=== PATIENT | female | born 1940 | race African-American/Black ===

== ENCOUNTER 2017-06-15 21:20 | Inpatient (IN) ==
[2017-06-15] MEDS ORDERED: ZOFRAN IV PRN (22:53)
--- NOTE | 2017-06-16 00:29 | HISTORY AND PHYSICAL ---
PRIMARY CARE PHYSICIAN: Dr. Joe Wilkins. CHIEF COMPLAINT: Blood in stools. HISTORY OF PRESENTING ILLNESS: 77-year-old female with a history of diabetes mellitus type 2, rheumatoid arthritis, hypertension, coronary disease, had presented to emergency room with 3 days history of noticing bright red blood per rectum. The patient states that every time she was having a bowel movement it seemed to be bloody. She apparently had went to [facility] and then due to lack of subspecialists care there she was transferred to [facility] for further GI evaluation. At the time of my examination she had denied any headache, vision changes, fevers, chills, nausea, vomiting, diarrhea, chest pain, shortness of breath, hemoptysis but did admit to hematochezia and not feeling well. PAST MEDICAL HISTORY: Include diabetes mellitus type 2, rheumatoid arthritis, hypertension, coronary artery disease. PAST SURGICAL HISTORY: Cholecystectomy, hysterectomy. ALLERGIES: No known drug allergies. CURRENT MEDICATIONS: As listed in the medication reconciliation. SOCIAL HISTORY: She is a former smoker. Denies any history of alcohol or illicit drug use. FAMILY HISTORY: No history of coronary disease. REVIEW OF SYSTEMS: Twelve point review of systems is as in HPI. Other systems negative. PHYSICAL EXAMINATION: GENERAL: Cooperative, friendly elderly female. She is resting comfortably now. VITAL SIGNS: Temperature 98.5 degrees, pulse 64, respirations 20, blood pressure 157/90. HEENT: Atraumatic, normocephalic. Extraocular movements intact. PERRLA. NECK: No masses. CHEST: Clear to auscultation. CARDIOVASCULAR: Regular rate and rhythm. ABDOMEN: Soft. Positive bowel sounds. EXTREMITIES: No edema. NEURO: She is awake, alert, oriented x3. : No bladder distention. SKIN: Warm. LABORATORIES AND STUDIES: Still pending here. ASSESSMENT: A 77-year-old female with a history of diabetes mellitus type 2, rheumatoid arthritis, hypertension coronary disease, had presented to initially [facility] with complaint of or bright red blood per rectum. She was transferred to [facility] due to lack of subspecialty care there. She will need hospitalization for management. ASSESSMENT: 1. Gastrointestinal bleed. 2. Diabetes mellitus type 2. 3. Rheumatoid arthritis. 4. Coronary artery disease. 5. Hypertension. PLAN: 1. We will admit patient to medical floor. 2. The patient NPO. 3. Continue with IV hydration with normal saline. 4. Will consult Gastroenterology. 5. Monitor blood glucose and put patient on sliding scale insulin regimen. 6. Will monitor blood pressure. Resume antihypertensive agent. 7. Put patient on DVT prophylaxis SCDs. 8. We will continue follow and reassess. cc: Akhil Qureshi MD
[2017-06-16] MEDS: PROTONIX IV SCH ×2 (00:52→23:10)
[2017-06-16] MEDS: NS 1,000 ML IV SCH (00:52)
[2017-06-16 06:07] LABS: HEMATOCRIT 27.5 % (37.0-47.0); HEMOGLOBIN 9.1 g/dL (12.0-16.0); MCH 26.7 PG (27-31); MCHC 33.1 g/dL (33-37); MCV 80.6 FL (81-99); MPV 10.3 FL (7.4-10.4); RBC 3.41 XMIL (4.2-5.4)
[2017-06-16] MEDS: HUMULIN R SUBQ SCH ×4 (06:10→21:49)
[2017-06-16 06:31] LABS: AGAP 9; BUN 21 mg/dL (8-22); CALCIUM 9.1 mg/dL (8.8-10.2); CHLORIDE 110 mmol/L (98-107); COSMO 294; POTASSIUM 3.9 mmol/L (3.5-5.1); SODIUM 146 mmol/L (136-145); TCO2 27 mmol/L (25-35)
--- NOTE | 2017-06-16 09:41 | PROGRESS NOTE ---
DATE: 06/16/2017 SUBJECTIVE: Ms. Snyder is in no pain. No complaints. Presented yesterday with rectal bleeding. She apparently has had a colonoscopy about 5 months ago and they did not find anything but describes bright red blood. PHYSICAL EXAMINATION: Vital Signs: Today, temperature 98.2 degrees, pulse 61, respirations 20, blood pressure 154/84. Lungs: Clear in all lung luis. Cardiovascular Examination: Regular rhythm and rate without murmur or S3. Abdomen: Soft. Skin: Warm and dry. Weight: 176 pounds. LABORATORY DATA: White count 6060, hematocrit 27, hemoglobin 9.1. Sodium 146, potassium 3.9, chloride 110, bicarb 27, BUN 21, creatinine 0.7. REVIEW: To review, this is a 77-year-old. She has a history of diabetes mellitus type 2, rheumatoid arthritis, hypertension, and coronary artery disease. Apparently had a heart attack years ago. Presented to the emergency room with a 3-day history of noticing bright red blood in the rectum and she has been losing some blood. Has had some anemia. Her doctor is Dr. Joe Wilkins. She denied any headache, fever, nausea. ASSESSMENT AND PLAN: 1. Lower gastrointestinal bleeding. We will ask Dr. Knox to see. Follow hemoglobin and hematocrit. Hemodynamically stable at this point. Continue fluids. We will hold her nothing per oral. 2. Diabetes mellitus type 2. We will follow sugars. 3. Rheumatoid arthritis. She is, I think, taking nonsteroidal anti-inflammatories. I think we will probably have to hold those. 4. History coronary artery disease and heart attack in the past. 5. Hypertension. Blood pressure is well controlled. 6. She is getting some pain medicine. Most of her joint pain is in her knees, her right knee in particular, and her hands. Her home medication was Norvasc. She took Butrans topically, Apresoline 50 mg b.i.d., Minipress 2 mg b.i.d., and Zantac 150 mg daily. At the present time, blood pressures look good so we will hold these medicines. cc: MD Akhil Martínez MD
[2017-06-16] MEDS: CENTRUM SILVER PO SCH (11:45)
[2017-06-16] MEDS ORDERED: GOLYTELY PO ONE (14:00)
[2017-06-16 15:29] LABS: BASO% 0.4 % (0.0-0.8); EOS# 0.05 X1000 (0.0-0.7); EOS% 0.9 % (0.0-10.0); HEMATOCRIT 26.3 % (37.0-47.0); HEMOGLOBIN 8.8 g/dL (12.0-16.0); LYMPH% 26.6 % (20.5-51.1); MANUAL DIFF NEEDED? YES; MCH 26.3 PG (27-31); MCHC 33.5 g/dL (33-37); MCV 78.7 FL (81-99); MONO# 0.36 X1000 (0.11-0.59); MONO% 6.4 % (1.7-9.3); MPV 9.6 FL (7.4-10.4); NEUT% 65.7 % (42.2-75.2); PLT 210 X1000 (130-400); RBC 3.34 XMIL (4.2-5.4)
[2017-06-16 15:56] LABS: EOS 3 % (1-10); LYMPHS 23 % (21-51); MONO 3 % (1-9)
[2017-06-16 21:07] LABS: MANUAL DIFF NEEDED? NO
[2017-06-16 21:11] LABS: BASO% 0.5 % (0.0-0.8); EOS# 0.08 X1000 (0.0-0.7); EOS% 1.3 % (0.0-10.0); HEMATOCRIT 30.6 % (37.0-47.0); HEMOGLOBIN 10.5 g/dL (12.0-16.0); LYMPH# 1.62 X1000 (1.2-3.4); LYMPH% 26.1 % (20.5-51.1); MCH 27.3 PG (27-31); MCHC 34.3 g/dL (33-37); MCV 79.7 FL (81-99); MONO# 0.43 X1000 (0.11-0.59); MONO% 6.9 % (1.7-9.3); MPV 9.9 FL (7.4-10.4); NEUT% 65.2 % (42.2-75.2); PLT 220 X1000 (130-400); RBC 3.84 XMIL (4.2-5.4)
[2017-06-16] MEDS: ICAR-C PO SCH (22:08)
[2017-06-17 02:26] LABS: MANUAL DIFF NEEDED? NO
[2017-06-17 02:37] LABS: BASO% 0.6 % (0.0-0.8); EOS# 0.09 X1000 (0.0-0.7); EOS% 1.8 % (0.0-10.0); HEMOGLOBIN 9.5 g/dL (12.0-16.0); LYMPH# 1.45 X1000 (1.2-3.4); LYMPH% 28.8 % (20.5-51.1); MCH 27.1 PG (27-31); MCHC 33.9 g/dL (33-37); MONO# 0.37 X1000 (0.11-0.59); MONO% 7.4 % (1.7-9.3); MPV 9.9 FL (7.4-10.4); NEUT% 61.4 % (42.2-75.2); PLT 188 X1000 (130-400)
--- NOTE | 2017-06-17 04:00 | CONSULTATION ---
DATE OF CONSULTATION: 06/16/2017 REASON FOR CONSULTATION: Rectal bleeding. HISTORY OF PRESENT ILLNESS: Ms. Snyder is a 77-year-old female who was admitted on 06/15/2017 with a new onset of bright red blood in the stools. According to the patient, she noted blood in the stools about 3 days ago, which gradually got worse, and presented to the [facility], from where she was transferred here. Today, so far, she had 5 bowel movements which were bloody, but her last bowel movement showed less amount of blood. She denies any previous history of similar presentation. She had a recent colonoscopy 5 months ago at [place]. She denies any history of peptic ulcer disease. She denies any use of NSAIDs. She denies any history of anti-platelet agents or blood thinners. She denies any previous history of constipation or diarrhea. PAST MEDICAL HISTORY: 1. Type 2 diabetes. 2. Rheumatoid arthritis. 3. Hypertension. 4. Coronary disease. PAST SURGICAL HISTORY: 1. Cholecystectomy. 2. Hysterectomy. 3. Colonoscopy 5 months ago at [place]. ALLERGIES: No known drug allergies. MEDICATIONS IN THE HOSPITAL: Reviewed. SOCIAL HISTORY: She is a former smoker. She denies history of alcohol or illicit drug abuse. FAMILY HISTORY: No history of colon problems in the family. REVIEW OF SYSTEMS: Denies any fevers, rigors, chills, chest pain, shortness of breath. Denies any nausea vomiting, vomiting blood. Does complain of bloody stools. The patient does have a history of arthritis and rheumatoid arthritis. Denies any neurologic complaints. PHYSICAL EXAMINATION: Vital Signs: Temperature of 98.4 degrees, pulse rate of 58, respiratory rate 18, blood pressure 172/81, saturating 98% on room air. Body weight of 176 pounds, 6.4 ounces, BMI of 31.2. General: The patient appears moderately-nourished, lying in bed, in no acute distress. HEENT: Pale conjunctivae. No icterus. Pupils equal, react to light. Neck: Supple. Chest: Decreased breath sounds. Cardiovascular: Regular rate and rhythm. No murmur. Abdomen: Soft, nontender, nondistended. Bowel sounds. No rebound. Extremities: No cyanosis, clubbing, or edema. Neurologic: She is alert, awake, oriented x3. LABORATORY STUDIES: Hemoglobin and hematocrit is 8.8 and 26.3, white count 5.6, platelet count of 210,000. MCV of 78.7, white count of 146. Potassium 3.9, chloride 110, bicarb of 27, anion gap 9, BUN of 21, creatinine 0.7, glucose of 99, calcium 9.1. Blood type is A-positive. IMPRESSION AND PLAN: 1. Anemia, microcytic. 2. Rectal bleeding. 3. Rheumatoid arthritis. 4. Former smoker. 5. Diabetes. 6. Hypertension. 7. Hypernatremia. RECOMMENDATIONS: 1. We will keep her on a clear liquid diet. We will schedule for EGD and colonoscopy tomorrow. We will type and cross, and transfuse 1 unit now, as she had 5 bowel movements today which were bloody. Will check her CBC every 6 hours for the next 24 hours, and we will transfer 2 units if hematocrit less than 25%. 2. We will start her on Protonix once daily. She will continue on sliding scale insulin. 3. If the patient has worsening gastrointestinal bleeding then she may transfer to the ICU. 4. The procedure of EGD and colonoscopy was discussed with the patient, and all risks, benefits, indications, and alternatives were explained to the patient. The patient expressed understanding and agreed to proceed with the above. cc: MD Akhil Mariee MD
[2017-06-17] MEDS: NS 1,000 ML IV SCH ×3 (06:00→14:17)
[2017-06-17] MEDS: HUMULIN R SUBQ SCH ×4 (06:01→21:17)
--- NOTE | 2017-06-17 07:53 | EKG Report ---
Test Performed on : 06/17/2017 06:56:24 AM Test Reason : pre-op Blood Pressure : / mmHG Vent. Rate : 055 BPM Atrial Rate : 055 BPM P-R Int : 176 ms QRS Dur : 150 ms QT Int : 486 ms P-R-T Axes : 075 010 186 degrees QTc Int : 464 ms Sinus bradycardia. Left bundle branch block Abnormal ECG No previous ECGs available Confirmed by Agapito Ambrosio MD ([id number]) on 06/17/2017 8:50:53 AM
[2017-06-17 08:14] LABS: MANUAL DIFF NEEDED? NO
[2017-06-17 08:18] LABS: BASO% 0.4 % (0.0-0.8); EOS# 0.07 X1000 (0.0-0.7); EOS% 1.5 % (0.0-10.0); HEMATOCRIT 27.8 % (37.0-47.0); HEMOGLOBIN 9.5 g/dL (12.0-16.0); LYMPH# 1.04 X1000 (1.2-3.4); LYMPH% 22.7 % (20.5-51.1); MCH 27.4 PG (27-31); MCHC 34.2 g/dL (33-37); MCV 80.1 FL (81-99); MONO# 0.28 X1000 (0.11-0.59); MONO% 6.1 % (1.7-9.3); MPV 10.4 FL (7.4-10.4); NEUT% 69.3 % (42.2-75.2); PLT 179 X1000 (130-400); RBC 3.47 XMIL (4.2-5.4)
[2017-06-17] MEDS: CENTRUM SILVER PO SCH (08:50)
[2017-06-17] MEDS: ICAR-C PO SCH ×3 (08:51→21:18)
[2017-06-17] MEDS ORDERED: FENTANYL ONE (09:47)
[2017-06-17] MEDS ORDERED: DIPRIVAN 1% ONE (09:48)
[2017-06-17] MEDS ORDERED: EPINEPHRINE SYRINGE ONE (10:04)
--- NOTE | 2017-06-17 10:26 | PROGRESS NOTE ---
DATE: 06/15/2017 PHYSICAL EXAMINATION: Temperature 98.1 degrees, pulse 66 respirations 12, blood pressure 174/80.Lungs: Clear in all lung luis. Cardiovascular: Regular rate without murmur or S3. Abdomen: Soft. Skin: Warm and dry. Urine output was 1600 mL. LABORATORY DATA: From today, white count 4580, hematocrit is 27 stable, platelet count 179,000, sodium 146 potassium 3.9, chloride 110, bicarbonate 27, BUN 21, creatinine 0.7. ASSESSMENT AND PLAN: 1. She presented with blood in stool, hematochezia. GI is following. Hematocrit remained stable. I suspect we will have to support colonoscopy. 2. Diabetes mellitus type 2. Blood sugars, continue pattern sugars and sliding scale. 3. History of rheumatoid arthritis. 4. Coronary artery disease. 5. Hypertension. REVIEW OF ORDERS: I do not see any change at this point. Dr. Knox has seen, consulted yesterday for anemia macrocytic, rectal bleeding. She is on a clear diet and was scheduled for EGD and colonoscopy which should happen today. She is on Protonix. cc: MD Akhil Martínez MD
[2017-06-17 14:00] LABS: MANUAL DIFF NEEDED? NO
[2017-06-17 14:06] LABS: BASO% 0.6 % (0.0-0.8); EOS# 0.08 X1000 (0.0-0.7); EOS% 1.5 % (0.0-10.0); HEMATOCRIT 29.6 % (37.0-47.0); LYMPH# 1.28 X1000 (1.2-3.4); LYMPH% 23.9 % (20.5-51.1); MCHC 33.8 g/dL (33-37); MONO# 0.34 X1000 (0.11-0.59); MONO% 6.3 % (1.7-9.3); MPV 9.9 FL (7.4-10.4); NEUT% 67.7 % (42.2-75.2); PLT 192 X1000 (130-400)
[2017-06-17] MEDS: CARAFATE PO SCH ×2 (14:16→19:50)
--- NOTE | 2017-06-17 16:29 | OPERATIVE NOTE ---
PROCEDURE DATE: 06/17/2017 PROCEDURE: 1. Esophagogastroduodenoscopy with cautery of the gastric arteriovenous malformation. 2. Colonoscopy. PREOPERATIVE DIAGNOSES: 1. Rectal bleeding. 2. Iron deficiency anemia. POSTOPERATIVE DIAGNOSES: 1. Normal esophagus. 2. The Z-line was at 34 cm. 3. Evidence of sliding hiatal hernia measuring 2 cm. 4. 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 This was cauterized. 5. Gastritis of the body antrum. 6. Normal fundus, cardia, incisura. 7. Normal duodenal bulb and second portion duodenum. 8. Mild duodenitis in the bulb. 9. Stool throughout the colon, poor prep, lesions less than 1 cm could be missed. 10. Diverticulosis in the left colon. 11. Old blood mixed with brown stool noted in the entire colon. 12. Internal hemorrhoids on retroflexion. ESTIMATED BLOOD LOSS: Minimal. COMPLICATIONS: None. ANESTHESIA: Monitored anesthesia care per the anesthesiologist. SPECIMEN: None. DESCRIPTION OF PROCEDURE: After informed consent, the patient explaining the risks, benefits, indications, alternatives, and the patient prepared for EGD and colonoscopy. The patient was brought to the OR. She was turned to the left lateral position, bite block was placed. After adequate monitored anesthesia care, the scope was introduced, advanced all the way to the second portion of duodenum. Esophagus normal entire length. Z-line was at 34 cm. There was evidence of hiatal hernia measuring 3 cm. Scope was advanced into the stomach evidence of AVM in the anterior aspect of the gastric body, this bled on touching and this was treated with black wire cautery with good hemostasis. The stomach showed evidence of erythema in the body and mild gastritis. Normal fundus, cardia, incisura. The duodenal bulb showed evidence of mild erosions suggesting duodenitis, 2nd portion of duodenum appeared normal. The endoscope was withdrawn. The patient was turned around. Rectal exam was performed, which revealed brown stool, with some old blood and no masses were felt. The colonoscope was introduced and was traversed all the way to the cecum. Cecum was identified by landmarks like IC valve, appendiceal orifice. The bowel prep was suboptimal and poor. So we had to lavage many areas, but we could not have a good visualization. The patient had a recent colonoscopy 5 months ago at [place], where she was told it was normal. I was able to visualize a lot of diverticulosis left colon but no active bleeding. There was evidence of thick brown stool throughout the colon mixed with old blood. Retroflexion in the rectum internal hemorrhoids. The air was removed as the scope was withdrawn. Because of poor prep, lesions less than 1 cm could be missed. I discussed the findings with the patient's family and all questions were answered. RECOMMENDATIONS: 1. The patient will be on clear liquids for 2 days and then advance as tolerated. 2. The patient will avoid corn, nuts, and seeds in diet. 3. Patient will be on Iron C b.i.d. for 3 months. 4. Patient will be on multivitamins once daily for 3 months. 5. Patient will be on Carafate 1 g every 6 hours for 1 month. 6. Patient will be on omeprazole 40 once daily for 3 months. 7. Start MiraLAX 34 g at bedtime. 8. If the patient rebleeds then she may need a colonoscopy with 2 day prep. 9. Patient avoid any NSAIDs and follow gastroesophageal reflux disease lifestyle changes. 10. Further recommendations pending the above. cc: MD Usama Mariee MD MTDD
[2017-06-17] MEDS: MIRALAX PO SCH ×2 (19:51→21:18)
[2017-06-17] MEDS: PROTONIX IV SCH (22:00)
[2017-06-17] MEDS: SODIUM CHLORIDE 0.9% INJ SCH (22:01)
[2017-06-18] MEDS: NS 1,000 ML IV SCH ×3 (01:22→12:40)
[2017-06-18] MEDS: PROTONIX IV SCH ×3 (01:22→23:31)
[2017-06-18] MEDS: CARAFATE PO SCH ×3 (04:23→21:14)
[2017-06-18] MEDS: HUMULIN R SUBQ SCH ×4 (06:39→21:06)
[2017-06-18 08:15] LABS: MANUAL DIFF NEEDED? NO
[2017-06-18 08:19] LABS: BASO% 0.3 % (0.0-0.8); EOS# 0.11 X1000 (0.0-0.7); EOS% 1.9 % (0.0-10.0); HEMATOCRIT 29.3 % (37.0-47.0); HEMOGLOBIN 9.9 g/dL (12.0-16.0); LYMPH# 1.34 X1000 (1.2-3.4); LYMPH% 22.9 % (20.5-51.1); MCHC 33.8 g/dL (33-37); MCV 80.1 FL (81-99); MONO# 0.34 X1000 (0.11-0.59); MONO% 5.8 % (1.7-9.3); MPV 9.9 FL (7.4-10.4); NEUT% 69.1 % (42.2-75.2); PLT 200 X1000 (130-400); RBC 3.66 XMIL (4.2-5.4)
[2017-06-18 08:41] LABS: AGAP 10; ALBUMIN 3.7 g/dL (3.5-5.0); ALKALINE PHOSPHATASE 72 U/L (32-104); BUN 8 mg/dL (8-22); CALCIUM 8.9 mg/dL (8.8-10.2); CHLORIDE 104 mmol/L (98-107); COSMO 281; GOT 22 U/L (10-30); GPT 20 U/L (10-36); POTASSIUM 3.7 mmol/L (3.5-5.1); SODIUM 142 mmol/L (136-145); TCO2 28 mmol/L (25-35); TOTAL BILIRUBIN 0.86 mg/dL (0.20-1.00); TOTAL PROTEIN 6.2 g/dL (6.3-8.3)
[2017-06-18] MEDS: ICAR-C PO SCH ×2 (09:39→21:14)
[2017-06-18] MEDS: CENTRUM SILVER PO SCH (09:39)
--- NOTE | 2017-06-18 14:28 | PROGRESS NOTE ---
DATE: 06/18/2017 SUBJECTIVE: Mrs. Snyder is doing much better today. She is complaining just of mild periumbilical pain. No sign of bleed. Hemoglobin and hematocrit have been stable. We will keep this patient on a clear liquid diet for 1 more day. Tomorrow hopefully I will advance the diet. If everything is okay probably I will discharge this patient home. OBJECTIVE: Vital Signs: Temperature 98.5 degrees, pulse 61, respiratory rate 14, blood pressure 136/96, O2 saturation 99 on room air. HEENT: Head normocephalic. No trauma. PERRLA. Neck: Supple. No JVD. No masses. Central trachea. Chest: Clear to auscultation. No wheezing. No rales. Abdomen: Soft, mild tenderness to palpation at the level of the periumbilical area. Positive bowel sounds. Extremities: No edema. No clubbing. No cyanosis. Neurological: The patient is alert and oriented x3. No focal neurological deficits. LABORATORY: WBC 5.8, hemoglobin 9.9, hematocrit 29.3, platelets 200,000. Sodium 142, potassium 3.7, chloride 104, bicarbonate 28, BUN 8, creatinine 0.7, glucose 93, calcium 8.9. ASSESSMENT AND PLAN: 1. Lower GI bleed. Gastroenterology Department did an endoscopy yesterday. They found a sliding hiatal hernia of about 2 cm. 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 Poor prep. Lesions less than 1 cm could be missed. Diverticulosis in the left colon, old blood mixed with brown stool noted in the entire colon and internal hemorrhoids on retroflexed. They recommended to keep this patient on clear liquids for 2 days and then advance as tolerated. Avoid corn, nuts and seeds in diet. The patient will be on Iron C b.i.d. for 3 months. Also vitamins once a day for 3 months, Carafate 1 g 4 times a day for 1 month, omeprazole 40 once a day for 3 months, MiraLAX 34 g at bedtime. Avoid NSAIDs. Lifestyle changes for GERD. If this patient re-bleeds probably she will need a new colonoscopy with 2 day prep. 2. Type 2 diabetes. Stable. Continue to monitor. 3. Rheumatoid arthritis. Will monitor. Aware. 4. History of coronary artery disease. Stable. No chest pain. 5. Hypertension. Blood pressure is well controlled. cc: Woodrow Loza MD
[2017-06-18] MEDS: MIRALAX PO SCH (21:14)
[2017-06-19] MEDS: NS 1,000 ML IV SCH (02:32)
[2017-06-19] MEDS: CARAFATE PO SCH ×3 (03:51→22:10)
[2017-06-19] MEDS: NORCO-5 PO PRN (04:23)
[2017-06-19 05:51] LABS: HEMATOCRIT 27.3 % (37.0-47.0); HEMOGLOBIN 9.2 g/dL (12.0-16.0)
[2017-06-19] MEDS: HUMULIN R SUBQ SCH ×4 (06:05→22:10)
[2017-06-19] MEDS: ICAR-C PO SCH ×2 (09:47→22:10)
[2017-06-19] MEDS: CENTRUM SILVER PO SCH (09:48)
--- NOTE | 2017-06-19 15:38 | PROGRESS NOTE ---
DATE: 06/19/2017 SUBJECTIVE: Ms. Snyder is doing much better today. I advanced the diet today. She spent 2 days with a clear liquid diet and today I started with soft GI diet. She is tolerating this diet good. I will continue to monitor for 1 more day the hemoglobin and hematocrit and tomorrow hopefully I will discharge this patient home. OBJECTIVE: Vital Signs: Temperature 98.3 degrees, pulse 51, respiratory rate 16, blood pressure 168/87. O2 saturation 98 on room air. HEENT: Head normocephalic. No trauma. PERRLA. Neck: Supple. No JVD. No masses. Central trachea. Chest: Clear to auscultation. No wheezing. No rales. Abdomen: Soft, nontender, nondistended. No hepatosplenomegaly. Extremities: No edema. No clubbing. No cyanosis. Neurological: The patient is alert and oriented x3. No focal deficits. LABORATORY: Hemoglobin 9.2, hematocrit 27.3. ASSESSMENT AND PLAN: 1. Lower GI bleed. Gastroenterology Department did an endoscopy a couple days ago. They found a sliding hiatal hernia of about 2 cm, evidence of gastric AV malformation in the anterior aspect of the gastric body that was cauterized, gastritis of the body by the antrum, mild duodenitis in the bulb, stool throughout the colon. Poor prep. Lesions less than 1 cm could be missed. Diverticulosis in the colon, old blood mixed with brown stool noted in the entire colon and internal hemorrhoids on retroflexion. They recommended to keep this patient on a clear liquid diet for 2 days and then advance the diet as tolerated which I did. Today I advanced the diet and she is tolerating this. I will monitor for 1 more day the hemoglobin and hematocrit and hopefully tomorrow I will send this patient home. They also recommend to avoid corn, nuts and seeds in diet. They recommended medications like Carafate 1 g 4 times a day for 1 month, omeprazole 40 mg once a day for 3 months, MiraLAX 34 g at bedtime. She needs to avoid NSAIDs with lifestyle changes for GERD. If this patient rebleeds probably she will need a new colonoscopy with 2 day prep. 2. Type 2 diabetes, stable. Continue to monitor. 3. Rheumatoid arthritis. Will monitor. Aware. 4. History of coronary artery disease. Stable. No chest pain. 5. Hypertension. The blood pressure is well controlled. cc: Woodrow Loza MD
--- NOTE | 2017-06-19 16:33 | PROGRESS NOTE ---
DATE: 06/19/2017 SUBJECTIVE: Patient resting in chair. She denies any new complaints. Denies any nausea, vomiting, vomiting blood. She denies any fever, rigors, or chills. She is tolerating diet well. OBJECTIVE: Her hemoglobin and hematocrit is 27%.Vital signs: Temperature of 98.3 degrees, pulse rate of 51, respiratory rate 16, blood pressure 160/87, saturating 98% on room air. General Appearance: Moderately well nourished, lying in bed, in no distress. HEENT: Pale conjunctivae. No icterus. Neck: Supple. Abdomen: Soft, nontender, nondistended. Bowel sounds heard. No guarding. No rebound. Extremities: No cyanosis or clubbing. Neurologic: She is alert, awake, oriented. LABS: Hemoglobin and hematocrit is 9.2 and 27.3, blood glucose of 90. IMPRESSION/PLAN: 1. Lower gastrointestinal bleed secondary to diverticular bleed which is now resolved. 2. Diverticulosis in the colon. She will avoid corn, nuts, and seeds in diet. 3. Constipation. She will need MiraLAX 17 g p.o. b.i.d. 4. X-ray showing gastric arteriovenous malformation which was cauterized. She will continue on Prilosec 40 mg daily for 3 months and then wean down to Zantac 150 mg p.o. b.i.d. 5. Type 2 diabetes. Continue monitor. 6. Rheumatic arthritis. Continue to monitor. 7. Gastrointestinal prophylaxis as above and bowel regimen with MiraLAX. 8. Above plans discussed with the patient and all questions answered. cc: MD Woodrow Mariee MD
[2017-06-19] MEDS: PROTONIX IV SCH ×2 (22:09→23:56)
[2017-06-19] MEDS: SODIUM CHLORIDE 0.9% INJ SCH (22:09)
[2017-06-19] MEDS: MINIPRESS PO SCH (22:09)
[2017-06-19] MEDS: APRESOLINE PO SCH (22:10)
[2017-06-19] MEDS: MIRALAX PO SCH (22:13)
[2017-06-20] MEDS: CARAFATE PO SCH (05:10)
[2017-06-20 05:15] VITALS: BP 132/75
[2017-06-20 05:43] LABS: HEMATOCRIT 28.6 % (37.0-47.0); HEMOGLOBIN 9.5 g/dL (12.0-16.0)
[2017-06-20] MEDS ORDERED: NORVASC PO SCH (09:00)
[2017-06-20] MEDS: CENTRUM SILVER PO SCH (09:48)
[2017-06-20] MEDS: APRESOLINE PO SCH (09:48)
[2017-06-20] MEDS: NORCO-5 PO PRN (09:48)
[2017-06-20] MEDS: MINIPRESS PO SCH (09:49)
[2017-06-20] MEDS: ICAR-C PO SCH (09:49)
[2017-06-20] MEDS: HUMULIN R SUBQ SCH ×2 (09:52→11:40)
--- NOTE | 2017-06-20 12:46 | PROGRESS NOTE ---
DATE: 06/20/2017 SUBJECTIVE: Patient currently resting in bed. She will be getting discharged today. She denies any nausea, vomiting, or diarrhea. Denies any fever, rigors, or chills. She denies any blood in the stools. Hematocrit is stable but low. Her hemoglobin is 9.5 and 40.6, which is better than yesterday. OBJECTIVE: Vital signs: Temperature 97.9 degrees, pulse rate of 57, respiratory rate 16, blood pressure 130/75, saturating 100% on room air. General appearance: Moderately built, moderately nourished, lying in bed, in no acute distress. HEENT: Pale conjunctivae. No icterus. Neck: Supple. Abdomen: Soft, nontender, nondistended. Bowel sounds are present. Extremities: No cyanosis, clubbing. Neurologic: She is alert, awake, oriented. LABS: Hemoglobin and hematocrit are 9.5 and 28.6. IMPRESSION AND PLAN: 1. Lower gastrointestinal bleed secondary to diverticular bleeding which is now resolved. 2. Diverticulosis in the colon. Will put her on a high fiber diet. Take 30 g of fiber a day. Drink plenty of fluids and avoid corn, nuts, and seeds in her diet. 3. Constipation. Will continue MiraLAX 17 g p.o. b.i.d. at home. 4. EGD showing gastric AVM which was cauterized. In that regard, she will remain on Prilosec 40 mg daily for 3 months and then we will wean her down to Zantac 150 mg p.o. b.i.d. 5. Anemia. Will start her on Iron C b.i.d. for 3 months and MVI PO QD for 3 months. 6. Rheumatoid arthritis and type 2 diabetes. Per the primary care team. 7. Gastrointestinal prophylaxis with Prilosec and bowel regimen with MiraLAX as above. The patient will follow with us as needed. She will continue to follow with the primary doctor to evaluate her anemia. 8. The above plan was discussed with the patient and all questions were answered. cc: MD Woodrow Mariee MD [facility]
--- NOTE | 2017-06-20 17:40 | DISCHARGE SUMMARY ---
ADMISSION DATE: 06/15/2017 DISCHARGE DATE: 06/20/2017 CONSULTATIONS: Damian Knox MD with Gastroenterology. PERTINENT PROCEDURES: EGD with cautery of gastric AVM and colonoscopy performed by Dr. Knox. DISCHARGE DIAGNOSES: 1. Lower gastrointestinal bleed secondary to diverticular bleed. Resolved. 2. Diverticulosis in the colon. The patient is to avoid corn, nuts and seeds in diet. 3. Constipation. Continue MiraLAX 17 g p.o. b.i.d. 4. Gastric arteriovenous malformation status post cauterization. Patient will continue on Prilosec 40 mg p.o. daily for 3 months and wean down to Zantac 150 p.o. b.i.d. Avoid nonsteroidal anti-inflammatory drugs and follow gastroesophageal reflux disease lifestyle changes. 5. Diabetes type 2. Continue home regimen. 6. Rheumatoid arthritis. Stable. 7. Coronary artery disease. Stable. No chest pain. 8. Hypertension. Blood pressures has been well-controlled. Stable. HOSPITAL COURSE: Ms. Snyder is a 77-year-old female with a history of diabetes mellitus type 2, rheumatoid arthritis, hypertension, coronary artery disease, who presented to the ED with a 3 day history of noticing bright red blood per rectum. She noted that every time she had a bowel movement it seemed to be bloody. She went to [facility]. Due to lack of that subspecialty the patient was transferred to [facility] for GI evaluation. On admission her hemoglobin and hematocrit was 9 and 28. She was started on IV hydration with a GI consultation. She was placed on IV Protonix as well as serial hemoglobin and hematocrits, and initially made NPO until her GI consultation. GI put her on a clear liquid diet. They transfused her with 1 unit of blood and scheduled her for an EGD and colonoscopy, and placed on a clear liquid diet. She underwent EGD with cautery of gastric AVMs as well as colonoscopy with Dr. Knox on the . She remained on a clear liquid diet for 2 days and then she was advanced as tolerated. She is to avoid corn, nuts and seeds in the diet. She will be placed on Icar-C for 3 months, MVI daily for 3 months, Carafate 1 g q.6 hours for 1 month, Prilosec 40 mg p.o. daily for 3 months and MiraLAX at bedtime. If she rebleeds she may need a colonoscopy with a 2 day prep. She is to avoid any NSAIDs and follow GERD lifestyle changes. The patient's hemoglobin and hematocrit has remained stable throughout her hospital stay. VITAL SIGNS ON DISCHARGE: Temperature is 97.9 degrees, heart rate 57, respirations 16, blood pressure 132/75, O2 is 100% on room air. DISCHARGE DIET: GI soft, advance as tolerated. DISCHARGE MEDICATIONS: As per Dr. Hou. FOLLOWUP: The patient is being discharged home. She will receive services through Home Health. Again she will need to avoid corn, nuts and seeds in her diet, and follow GERD lifestyle changes. The patient can return to the ED for any worsening of symptoms. DISCHARGE TIME: 30 minutes. Dictated by ALESSANDRA Chavez for Woodrow Loza MD cc: MD Joe Nova MD MTDD
[2017-06-21] MEDS ORDERED: PRILOSEC PO SCH (07:00)
[2017-06-22] MEDS ORDERED: BUPRENORPHINE 20 MCG TOP SCH (06:00)
--- NOTE | 2017-06-23 11:32 | PROGRESS NOTE ---
DATE: 06/18/2017 SUBJECTIVE: The patient is resting. She is sitting up in a chair. She is on clear liquids with no complaint of any nausea. Patient has no signs of any bleeding. OBJECTIVE: Vital signs: Stable. Temperature 98 degrees, pulse of 60, respirations 16, blood pressure 160/80, saturation 98% on room air. HEENT: There is conjunctival pallor present. No scleral icterus. Neck: Supple. Trachea midline. Heart: Normal. Lungs: Normal. Abdomen: Soft, nontender, nondistended. Bowel sounds are normal. LABORATORY: Hemoglobin and hematocrit are stable at 9.2 and 27.3. IMPRESSIONS: 1. Patient has small arteriovenous malformations in the gastric body as well as diverticulosis. The GI blood loss Dr. Knox may be from diverticulosis or AVMs. 2. Diverticulosis. 3. Constipation. 4. Type 2 diabetes. 5. Rheumatoid arthritis. 6. Gastrointestinal prophylaxis. Continue MiraLAX. PLAN: I think I will advance the patient's diet to full liquids and GI soft. Will continue to watch her for another day or [address] Knox will follow if patient needs a better prep of the colon but there were no major lesions that he has found other than diverticulosis. cc: Amos Davis MD
== END 2017-06-20 12:34 | disposition home health service (06) ==
LOC: EDSEX 21:20 → MERGE 21:20 → DIRADM 21:20 → SUATTDRO 21:20 → 4N 22:12
PROVIDERS: ATTEND Internal Medicine